=== PATIENT | female | born 1965 | race Caucasian/White ===

== ENCOUNTER → 2017-02-18 | Day surgery (SDC) | payer OTHER ==
[2017-02-11 08:10] VITALS: Ht 163.8 cm; Wt 72.7 kg
[~2017-02-18] VITALS: Ht 163.8 cm; Wt 72.7 kg
[~2017-02-18] MED LIST: BUTA1CAP6 PO; DICL50TA3 PO; DULO60CA44 PO; HYDR-5688 PO; IBUP-1050 PO; LIDOCAINE HCL 2% 2 ML VIAL (20MG/ML) ONE; MIDAZOLAM HCL 1 MG/ML 2ML VIAL ONE; MULTTAB58 PO; ONDANSETRON INJ 2 MG/ML 2 ML VIAL ONE; PROPOFOL IV EMULSION 10 MG/ML 20 ML VIAL IV ONE; RIZA10TA18 PO; SODIUM CHLORIDE 0.9% 500ML 500 ML IV ONE; TOPI50TA16 PO
--- NOTE | 2017-02-18 14:55 | Endo History and Physical ---
History & Physical Date of Service: Feb 18, 2017. Chief Complaint: SCREENING Referring Physician: DR. JOCY MCGEE History of Present Illness 52 yo CF who presents for screening colonoscopy. Past Surgical History Hx Cardiac Surgery: No Hx Internal Defibrillator: No Hx Pacemaker: No Hx Abdominal Surgery: Yes ([facility]) Hx of Implantable Prosthesis: No Hx Post-Op Nausea and Vomiting: No Hx Cancer Surgery: No Hx Thoracic Surgery: No Hx Orthopedic: Yes (RT CLAVICLE REPAIR) Hx Urinary Tract Surgery: No Family History Colon CA Social History Smoking Status: Never Smoker Hx Substance Use: No Hx Alcohol Use: No Allergies Coded Allergies: Latex1 -Allergic Contact Dermititis (Verified Allergy, Unknown, RASH, 02/11) NO KNOWN DRUG ALLERGIES (Verified Allergy, Unknown, ., 02/11/17) Nickel (Verified Adverse Reaction, Unknown, INFECTION IN EARS WITH CHEAP EARRINGS, 02/11/17) Current Medications Reported Home Medications Medications Dose Route/Sig Max Daily Dose Days Date Category Dose Instructions Multivitamin (Multiple Vitamin) 1 Tab Tab 1 Tab PO QAM 02/11/17 Reported Topamax (Topiramate) 50 Mg Tab 50 Mg PO BID 02/11/17 Reported Maxalt (Rizatriptan Benzoate) 10 Mg Tab 10 Mg PO UD PRN 02/11/17 Reported Advil (Ibuprofen) 200 Mg Tab 200-600 Mg PO Q4H PRN 02/11/17 Reported [place] 5MG/325MG (Acetaminophen/Hydrocodone Bitart) Tab 1 Tablet PO Q4 PRN 02/11/17 Reported PRN PAIN Voltaren (Diclofenac Sodium) 50 Mg Tabec 50 Mg PO BID 02/11/17 Reported Cymbalta (Duloxetine Hcl) 60 Mg Cap 60 Mg PO QAM 02/11/17 Reported Butalbital/Acetaminophen/ (Udxxavniet-Cdrfpnstlngbw-Wesal) 1 Cap Cap 1-2 Tbs PO BID PRN 02/11/17 Reported Vital Signs Weight (Kilograms): 72.73 Height (Feet): 5 Height (Inches): 4.5 Date Time Temp Pulse Resp B/P Pulse Ox O2 Delivery O2 Flow Rate FiO2 02/18/17 14:31 36.7 65 20 126/57 100 Room Air Physical Exam General Appearance: WD/WN, no apparent distress Respiratory/Chest: Auscultation: breath sounds normal Cardiovascular: Heart Auscultation: RRR Abdomen: Bowel Sounds: normal Inspection & Palpation: soft, non-distended, no tenderness, guarding & rebound Assessment and Plan Assessment: 52 yo CF who presents for screening colonoscopy. Plan: Proceed with colonoscopy.
--- NOTE | 2017-02-18 15:39 | GI REPORT ---
Procedure Date: 02/18/2017 2:52 PM Procedure: Colonoscopy Indications: Family history of colon cancer in a first-degree relative Medicines: Monitored Anesthesia Care Complications: No immediate complications. Estimated Blood Loss: Estimated blood loss: none. Procedure: Pre-Anesthesia Assessment: - Prior to the procedure, a History and Physical was performed, and patient medications and allergies were reviewed. The patient's tolerance of previous anesthesia was also reviewed. The risks and benefits of the procedure and the sedation options and risks were discussed with the patient. All questions were answered, and informed consent was obtained. Prior Anticoagulants: The patient has taken no previous anticoagulant or antiplatelet agents. ASA Grade Assessment: II - A patient with mild systemic disease. After reviewing the risks and benefits, the patient was deemed in satisfactory condition to undergo the procedure. After I obtained informed consent, the scope was passed under direct vision. Throughout the procedure, the patient's blood pressure, pulse, and oxygen saturations were monitored continuously. The scope was introduced through the anus and advanced to the terminal ileum. The colonoscopy was performed without difficulty. The patient tolerated the procedure well. The quality of the bowel preparation was good. The terminal ileum, ileocecal valve, appendiceal orifice, and rectum were photographed. Findings: A single (solitary) six mm ulcer was found in the descending colon. No bleeding was present. Biopsies were taken with a cold forceps for histology. Non-bleeding internal hemorrhoids were found during retroflexion. The hemorrhoids were small. Impression: - A single (solitary) ulcer in the descending colon. Biopsied. - Non-bleeding internal hemorrhoids. Recommendation: - Resume previous diet. - Continue present medications. - Repeat colonoscopy for surveillance based on pathology results. - Return to primary care physician as previously scheduled. Alfred Goodson DO 02/18/2017 3:39:03 PM This report has been signed electronically. Note Initiated On: 02/18/2017 2:52 PM I attest to the content of the Intraoperative Record and orders documented therein, exceptions below
--- NOTE | 2017-02-18 15:39 | Discharge Instructions ---
Endoscopy Patient Instructions Date / Procedure(s) Performed Feb 18, 2017. Colonoscopy Allergy Information Coded Allergies: Latex1 -Allergic Contact Dermititis (Verified Allergy, Unknown, RASH, 02/11) NO KNOWN DRUG ALLERGIES (Verified Allergy, Unknown, ., 02/11/17) Nickel (Verified Adverse Reaction, Unknown, INFECTION IN EARS WITH CHEAP EARRINGS, 02/11/17) Discharge Date / Findings Feb 18, 2017. Colon ulcer s/p biopsies Internal hemorrhoids Medication Instructions OK to resume all medications today as prescribed Reported Home Medications Medications Dose Route/Sig Max Daily Dose Days Date Category Dose Instructions Multivitamin (Multiple Vitamin) 1 Tab Tab 1 Tab PO QAM 02/11/17 Reported Topamax (Topiramate) 50 Mg Tab 50 Mg PO BID 02/11/17 Reported Maxalt (Rizatriptan Benzoate) 10 Mg Tab 10 Mg PO UD PRN 02/11/17 Reported Advil (Ibuprofen) 200 Mg Tab 200-600 Mg PO Q4H PRN 02/11/17 Reported [place] 5MG/325MG (Acetaminophen/Hydrocodone Bitart) Tab 1 Tablet PO Q4 PRN 02/11/17 Reported PRN PAIN Voltaren (Diclofenac Sodium) 50 Mg Tabec 50 Mg PO BID 02/11/17 Reported Cymbalta (Duloxetine Hcl) 60 Mg Cap 60 Mg PO QAM 02/11/17 Reported Butalbital/Acetaminophen/ (Thwwwitedt-Youqcosktqibu-Nugvo) 1 Cap Cap 1-2 Tbs PO BID PRN 02/11/17 Reported Provider Instructions Activity Restrictions - No exercising or heavy lifting for 24 hours. - Do not drink alcohol the day of the procedure. - Do not drive a car or operate machinery until the day after the procedure. - Do not make any important decisions or sign important papers in 24 hours after the procedure. Following Day: - Return to full activity which may include returning to work/school. Diet Start your diet with liquids and light foods (jello, soup, juice, toast). Then eat your usual diet if not nauseated. Treatment For Common After Affects For mild abdominal pain, bloating, or excessive gas: - Rest - Eat lightly - Lie on right side Follow-Up Information Follow-up with DR. JOCY MCGEE as scheduled Anesthesia Information What You Should Know You have had a procedure that required some medicine to reduce anxiety and discomfort. This treatment is called moderate sedation. After receiving the treatment, you may be sleepy, but you will be able to breathe on your own. The effects of the treatment may last for several hours. Follow these instructions along with Activity/Diet recommendations noted above: * Do NOT do anything where dizziness or clumsiness would be dangerous. * Rest quietly at home today, then you can be up and about tomorrow. * Have a responsible person stay with you the rest of today. * You may have had an I.V. today. If so, you may take the dressing off later today. Recommendations Call your doctor if: * Trouble breathing * Continuous vomiting for more than 24 hours * Temperature above 101 degrees * Severe abdominal pain or bloating * Pain not relieved by pain medicine ordered * There is increased drainage or redness from any incision * A large amount of rectal bleeding greater than 2-3 tablespoons. (If you had a polyp/s removed or have hemorrhoids, a small amount of blood - from the rectum is to be expected.) * You have any unanswered questions or concerns. IN THE EVENT OF A SERIOUS EMERGENCY, GO TO THE NEAREST EMERGENCY ROOM Your discharge instructions were prepared by provider Alfred Goodson. Patient Instructions Signature Page Jennifer Solano Patient (or Guardian) Signature/Date: I have read and understand the instructions given to me by my caregivers. Caregiver/RN/Doctor Signature/Date: The above-named patient and/or guardian has received patient instructions on this date. + Original Patient Signature Page (only) stays with chart. Please make copy for patient.
[2017-02-18 15:56] VITALS: BP 134/72; PULSE 58; O2SAT 98
--- NOTE | 2017-02-18 16:35 | Anesthesiology Progress Note ---
Anesthesia Post Op Note Date & Time Feb 18, 2017 at 16:35 Vital Signs Pain Intensity: 0 Vital Signs Past 12 Hours Date Time Temp Pulse Resp B/P Pulse Ox O2 Delivery O2 Flow Rate FiO2 02/18/17 15:56 58 16 134/72 98 Room Air 02/18/17 15:41 61 16 105/72 98 Room Air 02/18/17 15:26 71 16 107/67 94 Nasal Cannula 3 02/18/17 14:31 36.7 65 20 126/57 100 Room Air Notes Mental Status: alert / awake / arousable, participated in evaluation Pt Amnestic to Procedure: Yes Nausea / Vomiting: adequately controlled Pain: adequately controlled Airway Patency, RR, SpO2: stable & adequate BP & HR: stable & adequate Hydration State: stable & adequate Anesthetic Complications: no major complications apparent
== END | disposition home or self-care (01) ==
LOC: C.ACU 02-11 08:18 → C.GI 14:05
PROVIDERS: ATTEND Internal Medicine
DX: Z12.11 Encounter for screening for malignant neoplasm of colon (principal); Z80.0 Family history of malignant neoplasm of digestive organs; K64.8 Other hemorrhoids; K63.3 Ulcer of intestine

== ENCOUNTER 2017-11-21 11:11 | Emergency (ER) | payer OTHER ==
[~2017-11-21] VITALS: Ht 165.1 cm; Wt 79.0 kg
[~2017-11-21 11:11] MED LIST changes: -LIDOCAINE HCL 2% 2 ML VIAL (20MG/ML) ONE; -MIDAZOLAM HCL 1 MG/ML 2ML VIAL ONE; -ONDANSETRON INJ 2 MG/ML 2 ML VIAL ONE; -PROPOFOL IV EMULSION 10 MG/ML 20 ML VIAL IV ONE; -SODIUM CHLORIDE 0.9% 500ML 500 ML IV ONE
[2017-11-21 11:15] VITALS: TEMP 36.6; Ht 165.1 cm; Wt 79.0 kg
[2017-11-21 11:23] VITALS: O2SAT 100
[2017-11-21] MEDS ORDERED: MISC4CAP PO (12:11)
[2017-11-21] MEDS ORDERED: CRANPOW PO (12:11)
[2017-11-21 12:30] LABS: BASO % 0.3 %; BASO ABS # 0.02 K/uL (0-0.2); EOS % 2.2 %; EOS ABS # 0.15 K/uL (0-0.5); HEMATOCRIT 44.3 % (37-47); HEMOGLOBIN 14.8 g/dL (12.0-16.0); IG# 0.01 K/uL (0.00-0.02); LYMPH % 39.1 %; LYMPH ABS # 2.68 K/uL (1.2-3.4); MEAN CELL VOLUME 90.6 fL (80-100); MEAN CORPUSCULAR HEMOGLOBIN 30.3 pg (25-34); MEAN CORPUSCULAR HGB CONC 33.4 g/dl (32-36); MEAN PLATELET VOLUME 11.6 fL (7.4-10.4); MONO % 6.1 %; MONO ABS # 0.42 K/uL (0.11-0.59); NEUT % 52.2 %; NEUT ABS # 3.58 K/uL (1.4-6.5); PLATELET COUNT 226 K/uL (130-400); RED CELL DISTRIBUTION WIDTH CV 13.5 % (11.5-14.5); RED CELL DISTRIBUTION WIDTH SD 44.5 fL (36.4-46.3); WHITE BLOOD COUNT 6.86 K/uL (4.8-10.8)
--- NOTE | 2017-11-21 12:32 | DIAGNOSTIC IMAGING REPORT ---
CHEST ONE VIEW PORTABLE CLINICAL HISTORY: CHEST PAIN COMPARISON STUDY: No previous studies for comparison. FINDINGS: The bones soft tissues and hemidiaphragms are normal. The cardiomediastinal silhouette is normal. The lungs are clear. The pulmonary vasculature is normal. Postoperative changes right clavicle IMPRESSION: Negative chest. The above report was generated using voice recognition software. It may contain grammatical, syntax or spelling errors. Electronically signed by: Jose Saeed M.D. 11/21/2017 12:31 PM Dictated Date/Time: 11/21/2017 12:30 PM
[2017-11-21 12:56] LABS: ALBUMIN 3.7 gm/dl (3.4-5.0); ALKALINE PHOSPHATASE 50 U/L (45-117); ALT/SGPT 30 U/L (12-78); AST/SGOT 9 U/L (15-37); BLOOD UREA NITROGEN 13 mg/dl (7-18); CARBON DIOXIDE 29 mmol/L (21-32); CKMB 0.8 ng/ml (0.5-3.6); GLUCOSE 83 mg/dl (70-99); LIPASE 140 U/L (73-393); POTASSIUM 3.8 mmol/L (3.5-5.1); SODIUM 139 mmol/L (136-145); TOTAL PROTEIN 7.3 gm/dl (6.4-8.2)
[2017-11-21] MEDS ORDERED: DEXAMETHASONE INJ 10 MG in SYRINGE 0 ML IV STA (13:21)
--- NOTE | 2017-11-21 13:24 | EMERGENCY ROOM VISIT NOTE ---
History First contact with patient: 11:14 Chief Complaint: CHEST PAIN Stated Complaint: CHEST PAIN,SOB History of Present Illness The patient is a 52 year old female who presents to the Emergency Room with complaints of central chest pain that she describes as an intermittent pain that "feels tense", "like my heart is going to explode" and "feels like pressure ". The patient reports that the pain is worsened with deep breathing and lifting. The patient reports that she occasionally holds her breath because of the pain. Her family is in the area for the holidays, and noticed that she seemed to be uncomfortable even with walking and trying to lift or hold her grandchildren. The patient was seen by her PCP today and had an ECG performed. She was instructed to come to the emergency department for further reevaluation. The patient denies any personal history of cardiopulmonary disease. Her father had his first heart attack at the age of 60. The patient denies over exerting herself or performing any significant activities that could have flared or anterior chest pain. She has had no significant or recent upper respiratory infection, cough or sore throat. She does report mild shortness of breath that seems to be worse with movement. She currently rates her discomfort a 2 out of 10. Review of Systems HEENT: Denies dizziness, visual problems, hearing loss, tinnitus. Denies difficulty swallowing or oral lesions. PULMONARY: Denies cough, sputum production or hemoptysis. CARDIOVASCULAR: Denies palpitations, dyspnea on exertion, orthopnea or peripheral edema. Otherwise see history of present illness. GASTROINTESTINAL: Denies diarrhea, constipation, nausea, vomiting, or abdominal pain. GENITOURINARY: Denies dysuria, frequency, urgency or nocturia. NEUROLOGIC: Denies history of epilepsy, CVA, TIA or chronic headaches. MUSCULOSKELETAL: Denies history of joint tenderness/swelling. SKIN: Denies rashes or lesions. PSYCHIATRIC: Denies history of depression or mental illness. ENDOCRINE: Denies history of diabetes or thyroid disorders. Past Medical/Surgical History Medical Problems: (1) Cervical Disc Degen (2) Other Hemorrhoids (3) Postconcussion Syndrome (4) Ulcer Of Intestine Surgical Problems: (1) Fx Clavicle Shaft-Closed (2) History of cholecystectomy Family History FH: cancer FH: coronary artery disease FH: gallbladder disease Social History Smoking Status: Never Smoker Alcohol Use: none Marital Status: Occupation Status: unemployed Current/Historical Medications Scheduled Cranberry (Vaccinium Macrocarp (Cranberry), 2 CAP PO QAM Diclofenac (Voltaren), 50 MG PO BID Duloxetine Hcl (Cymbalta), 60 MG PO QAM Probiotic Product (Align), 4 MG PO QAM Topiramate (Topamax), 50 MG PO BID Scheduled PRN Ibuprofen (Advil), 200-600 MG PO Q4H PRN for Pain Rizatriptan Benzoate (Maxalt), 10 MG PO UD PRN for Headache Physical Exam Vital Signs Date Time Temp Pulse Resp B/P (MAP) Pulse Ox O2 Delivery O2 Flow Rate FiO2 11/21/17 12:23 64 122/78 97 Room Air 11/21/17 12:05 64 11/21/17 11:23 99 Room Air 11/21/17 11:23 100 Room Air 11/21/17 11:15 36.6 74 20 132/81 98 Room Air Physical Exam CONSTITUTIONAL: Healthy and well nourished. Alert and oriented X 3 with positive affect. Patient appears in mild discomfort from pain. HEENT: Normocephalic, atraumatic. Pupils equal, round and reactive. Ears and nares are clear. No scrotal icterus or conjunctival injection. NECK: Full active range of motion without discomfort. No JVD or carotid bruits. RESPIRATORY: Clear to auscultation bilaterally with no wheezing, crackles, rhonchi or stridor. The breathing causes mild discomfort. CARDIOVASCULAR: Regular rate and rhythm with no murmurs, rubs or gallops. GASTROINTESTINAL: Bowel sounds present in all quadrants. Soft and nontender to palpation in the epigastrium. No palpable hepatosplenomegaly. Negative CVA tenderness. MUSCULOSKELETAL: Examination shows notable tenderness to palpation of the costochondral joints. Otherwise she has full range of motion of the shoulders without discomfort. No other lateral or posterior rib tenderness to palpation. INTEGUMENTARY: No rash or other significant dermatologic conditions noted. HEMATOLOGIC: No ecchymosis or petechiae noted. NEUROLOGIC: No focal neurologic deficits noted. Medical Decision & Procedures ER Provider Diagnostic Interpretation: My interpretation of an ECG shows a possible incomplete right bundle branch block with a rate of 62 bpm. No prior ECGs are available for comparison. My interpretation of a portable chest x-ray does not show any consolidations, pneumothorax or cardiac prominence. Radiologist report is as follows: CHEST ONE VIEW PORTABLE CLINICAL HISTORY: CHEST PAIN COMPARISON STUDY: No previous studies for comparison. FINDINGS: The bones soft tissues and hemidiaphragms are normal. The cardiomediastinal silhouette is normal. The lungs are clear. The pulmonary vasculature is normal. Postoperative changes right clavicle IMPRESSION: Negative chest. Laboratory Results 11/21/17 11:20 Red Blood Count 4.89, Mean Corpuscular Volume 90.6, Mean Corpuscular Hemoglobin 30.3, Mean Corpuscular Hemoglobin Concent 33.4, Mean Platelet Volume 11.6, Neutrophils (%) (Auto) 52.2, Lymphocytes (%) (Auto) 39.1, Monocytes (%) (Auto) 6.1, Eosinophils (%) (Auto) 2.2, Basophils (%) (Auto) 0.3, Neutrophils # (Auto) 3.58, Lymphocytes # (Auto) 2.68, Monocytes # (Auto) 0.42, Eosinophils # (Auto) 0.15, Basophils # (Auto) 0.02 11/21/17 11:20 Test 11/21/17 11:20 11/21/17 12:29 White Blood Count 6.86 K/uL (4.8-10.8) Red Blood Count 4.89 M/uL (4.2-5.4) Hemoglobin 14.8 g/dL (12.0-16.0) Hematocrit 44.3 % (37-47) Mean Corpuscular Volume 90.6 fL (80-100) Mean Corpuscular Hemoglobin 30.3 pg (25-34) Mean Corpuscular Hemoglobin Concent 33.4 g/dl (32-36) Platelet Count 226 K/uL (130-400) Mean Platelet Volume 11.6 fL (7.4-10.4) Neutrophils (%) (Auto) 52.2 % Lymphocytes (%) (Auto) 39.1 % Monocytes (%) (Auto) 6.1 % Eosinophils (%) (Auto) 2.2 % Basophils (%) (Auto) 0.3 % Neutrophils # (Auto) 3.58 K/uL (1.4-6.5) Lymphocytes # (Auto) 2.68 K/uL (1.2-3.4) Monocytes # (Auto) 0.42 K/uL (0.11-0.59) Eosinophils # (Auto) 0.15 K/uL (0-0.5) Basophils # (Auto) 0.02 K/uL (0-0.2) RDW Standard Deviation 44.5 fL (36.4-46.3) RDW Coefficient of Variation 13.5 % (11.5-14.5) Immature Granulocyte % (Auto) 0.1 % Immature Granulocyte # (Auto) 0.01 K/uL (0.00-0.02) D-Dimer < 190 ug/L FEU (0-500) Anion Gap 4.0 mmol/L (3-11) Est Creatinine Clear Calc Drug Dose 98.8 ml/min Estimated GFR () 116.3 Estimated GFR (Non- 100.3 BUN/Creatinine Ratio 18.2 (10-20) Calcium Level 9.0 mg/dl (8.5-10.1) Total Bilirubin 0.4 mg/dl (0.2-1) Direct Bilirubin < 0.1 mg/dl (0-0.2) Aspartate Amino Transf (AST/SGOT) 9 U/L (15-37) Alanine Aminotransferase (ALT/SGPT) 30 U/L (12-78) Alkaline Phosphatase 50 U/L (45-117) Total Creatine Kinase 52 U/L (26-192) Creatine Kinase MB 0.8 ng/ml (0.5-3.6) Creatine Kinase MB Ratio 1.5 (0-3.0) Troponin I < 0.015 ng/ml (0-0.045) Total Protein 7.3 gm/dl (6.4-8.2) Albumin 3.7 gm/dl (3.4-5.0) Lipase 140 U/L (73-393) Bedside Troponin I < 0.030 ng/ml (0-0.045) The above labs were reviewed and were normal, including troponin and d-dimer. ED Course Patient history and physical exam were performed. Nurse's notes were reviewed. Vital signs were reviewed and were normal. The patient refused any analgesics on initial exam. The reported that she is not allowed to take any NSAIDs with history of an intestinal ulcer. It is noted that the patient takes diclofenac on a regular basis for chronic clavicle pain. The patient and were not aware that diclofenac was an NSAID as well, and they were encouraged to discuss this further with their PCP and/or slubber tender. Physical exam is highly suggestive of costochondritis, but I did suggest further workup to rule out other acute cardiopulmonary etiologies. IV access was established, and labs were drawn. ECG and portable chest x-ray were normal. Review of labs shows no acute abnormalities. D-dimer and troponin were normal. The patient had no worsening symptoms while in the emergency department. The patient was also placed on radiographer cardiac catheterization and had no dysrhythmias while in the emergency department. The case was also reviewed with Dr. Comer, ED attending physician who agrees with workup and plan of care. He did suggest administering a dose of IV corticosteroid. The patient was administered Decadron 10 mg IVP after discussing this further with the patient. The patient was encouraged to follow- up with her PCP for further reevaluation. The patient was encouraged to intermittently apply ice to the chest wall. She was also encouraged to take Tylenol for baseline pain relief. The patient appears to be tolerating diclofenac well, and may continue with this as needed for pain. However, I did encourage her to discuss use of diclofenac with her PCP/slubber tender with history of intestinal ulcer. She was instructed to return to the emergency department for any progressively worsening pain, change in character of the pain , or with any associated nausea, vomiting, fever or change in characteristic of the pain. The patient was happy with plan of care, and voiced understanding of all discharge instructions. Medical Decision Patient presents with complaint of anterior chest pain. Her examination is highly suggestive of costochondritis with reproducible pain on palpation. Workup today is not suggestive of myocardial infarction, pneumothorax, pulmonary embolus, pericarditis, myocarditis, CHF, pneumothorax. I do not suspect aortic dissection. Laboratory studies also are not suggestive of pancreatitis, hepatitis or cholecystitis. The patient has no tenderness to palpation of the abdomen. I also do not suspect cervical radiculitis. The patient has no skin changes to suggest herpes zoster. [place] Drug Monitoring Program Search Results: patient reviewed within database Medication Reconcilliation Current Medication List: was personally reviewed by me Blood Pressure Screening Patient's blood pressure: Normal blood pressure Impression Primary Impression: Costochondritis, acute Departure Information Referrals Michelle Appiah DO (PCP) Patient Instructions [facility]
[2017-11-21] MEDS ORDERED: DEXAMETHASONE **PF** INJ 10 MG/ML VIAL ONE (13:35)
[2017-11-21 13:46] VITALS: BP 122/78; PULSE 68; O2SAT 99
== END 2017-11-21 13:49 | disposition home or self-care (01) ==
LOC: C.EDB 11:12 → C.EDA 13:49
DX: M94.0 Chondrocostal junction syndrome [Tietze] (principal); M50.30 Other cervical disc degeneration, unspecified cervical region; Z90.49 Acquired absence of other specified parts of digestive tract; Z87.19 Personal history of other diseases of the digestive system; Z80.9 Family history of malignant neoplasm, unspecified; Z82.49 Family history of ischemic heart disease and other diseases of the circulatory system; Z83.79 Family history of other diseases of the digestive system

== ENCOUNTER → 2017-12-23 | Outpatient (CLI) | payer OTHER ==
[~2017-12-23] MED LIST changes: -BUTA1CAP6 PO; +CRANPOW PO; -HYDR-5688 PO; +MISC4CAP PO; -MULTTAB58 PO
[2017-12-23 17:45] LABS: INFLUENZA A PCR Neg for Influ A (NEG); INFLUENZA B PCR Neg for Influ B (NEG)
== END | disposition home or self-care (01) ==
LOC: C.LABSPEC 15:55
PROVIDERS: ATTEND Family Medicine
DX: J02.9 Acute pharyngitis, unspecified (principal)